=== PATIENT | male | born 1995 | race Hispanic/Latino ===

== ENCOUNTER 2021-04-11 15:11 | Inpatient (IN) | payer OTHER ==
[~2021-04-11] VITALS: Ht 177.8 cm; Wt 78.5 kg
[2021-04-11 15:16] VITALS: BP 115/54
[2021-04-11] MEDS ORDERED: LACTATED RINGERS 1000ML 1,000 ML IV SCH (15:30)
[2021-04-11 15:52] LABS: BASOPHILS % (AUTO) 0.8 % (0.0-5.0); EOSINOPHILS % (AUTO) 0.6 % (0.0-8.0); LYMPHOCYTES % (AUTO) 16.3 % (21.0-51.0); MEAN CORPUSCULAR HEMOGLOBIN 29.7 pg (27.0-33.0); MEAN CORPUSCULAR HGB CONC 33.9 g/dL (32.0-36.0); MEAN CORPUSCULAR VOLUME 87.6 fL (79-99); MONOCYTES % (AUTO) 12.2 % (3.0-13.0); NEUTROPHILS % (AUTO) 69.5 % (40.0-77.0); PLATELET COUNT (AUTO) 242 K/uL (130-400); RED BLOOD CELL COUNT(AUTO) 5.82 MIL/uL (4.50-6.20); RED CELL DISTRIBUTION WIDTH 12.6 % (11.0-15.5); WHITE BLOOD COUNT (AUTO) 12.6 K/uL (4.8-10.8)
[2021-04-11 16:06] LABS: CREATININE 0.7 mg/dL (0.5-1.5); POTASSIUM 3.2 mmol/L (3.5-5.1)
[2021-04-11 16:19] LABS: ALBUMIN 4.1 g/dL (3.5-5.0); BILIRUBIN,TOTAL 1.3 mg/dL (0.2-1.0); MAGNESIUM 2.1 mg/dL (1.80-2.40); TOTAL PROTEIN, SERUM 7.7 g/dL (6.0-8.3)
[2021-04-11] MEDS ORDERED: LACTATED RINGERS 1000ML 1,000 ML IV ONE (17:30)
[2021-04-11 19:06] LABS: APPEARANCE,URINE Clear (CLEAR); BILIRUBIN,URINE Negative (NEGATIVE); COLOR,URINE Dark Yellow (YELLOW); GLUCOSE, URINE (UA) Negative (NEGATIVE); KETONES,URINE 40 mg/dL (NEGATIVE); LEUKOCYTE ESTERASE ,URINE Small (NEGATIVE); NITRATE,URINE Negative (NEGATIVE); OCCULT BLOOD,URINE Negative (NEGATIVE); PH,URINE 6.5 (5.0-8.0); PROTEIN,URINE Trace mg/dL (NEGATIVE)
[2021-04-11 19:22] LABS: BACTERIA,URINE Few /HPF (None Seen); MUCUS,URINE Few LPF (None Seen); SQUAMOUS EPITHELIAL CELL,UR Few /HPF (0-2)
[2021-04-11 19:30] VITALS: BP 108/62
[2021-04-11] MEDS ORDERED: LACTATED RINGERS 1000ML IV SCH (19:30)
[2021-04-11] MEDS ORDERED: POTASSIUM CHLORIDE 10% ELIXIR 20 MEQ/15 ML UDCUP PO PRN (20:30)
[2021-04-11] MEDS ORDERED: KCL 20 MEQ ERTAB PO PRN (20:30)
[2021-04-11] MEDS ORDERED: POTASSIUM CHLORIDE 20MEQ/100ML 100 ML IV PRN (20:30)
[2021-04-11] MEDS ORDERED: LIDOCAINE HCL-MPF 1% 2ML VIAL IV PRN (20:30)
[2021-04-11] MEDS ORDERED: CEFTRIAXONE 1G VIAL IVP SCH (20:30)
[2021-04-11] MEDS: 0.9%NACL 1000ML 1,000 ML IV SCH (20:45)
[2021-04-11] MEDS: HEPARIN 5,000 UNIT VIAL SQ SCH (21:00)
[2021-04-11] MEDS: FAMOTIDINE 20MG VIAL IV SCH (21:00)
[2021-04-11 23:02] VITALS: BP 101/59
[2021-04-11] MEDS ORDERED: IOHEXOL-350 75 ML VIAL IV ONE (23:14)
[2021-04-12] VITALS (8 sets, daily range): BP systolic 117–131; BP diastolic 57–71
[2021-04-12] MEDS: 0.9%NACL 1000ML 1,000 ML IV SCH ×3 (03:40→16:57)
[2021-04-12 06:46] LABS: BASOPHILS % (AUTO) 0.4 % (0.0-5.0); EOSINOPHILS % (AUTO) 1.1 % (0.0-8.0); HEMATOCRIT 48.8 % (42-54); MEAN CORPUSCULAR HEMOGLOBIN 29.7 pg (27.0-33.0); MEAN CORPUSCULAR HGB CONC 33.2 g/dL (32.0-36.0); MEAN CORPUSCULAR VOLUME 89.4 fL (79-99); MONOCYTES % (AUTO) 10.4 % (3.0-13.0); NEUTROPHILS % (AUTO) 74.7 % (40.0-77.0); PLATELET COUNT (AUTO) 214 K/uL (130-400); RED BLOOD CELL COUNT(AUTO) 5.46 MIL/uL (4.50-6.20); RED CELL DISTRIBUTION WIDTH 12.7 % (11.0-15.5)
[2021-04-12 06:58] LABS: CREATININE 0.7 mg/dL (0.5-1.5); POTASSIUM 4.1 mmol/L (3.5-5.1)
[2021-04-12] MEDS: FAMOTIDINE 20MG VIAL IV SCH ×2 (11:56→19:46)
[2021-04-12] MEDS: HEPARIN 5,000 UNIT VIAL SQ SCH ×2 (12:09→19:46)
[2021-04-12 13:57] LABS: AMPHET/METH SCREEN,URINE NEGATIVE (NEGATIVE); BARBITURATE SCREEN, URINE NEGATIVE (NEGATIVE); BENZODIAZEPINES SCREEN,URINE NEGATIVE (NEGATIVE); CANNABINOID SCREEN,URINE POSITIVE (NEGATIVE); COCAINE SCREEN,URINE NEGATIVE (NEGATIVE); OPIATE SCREEN,URINE NEGATIVE (NEGATIVE); PHENCYCLIDINE SCREEN,URINE NEGATIVE (NEGATIVE)
[2021-04-12] MEDS ORDERED: HYDROXYZINE 25 MG TABLET PO PRN (15:30)
[2021-04-12] MEDS: METRONIDAZOLE 500 MG TABLET PO SCH ×2 (16:57→19:46)
[2021-04-12] MEDS: HYDROXYZINE 25 MG TABLET PO SCH ×2 (16:57→19:46)
[2021-04-12] MEDS: LEVOFLOXACIN 500 MG/D5W 100 ML 100 ML IV SCH (16:57)
[2021-04-13] MEDS: 0.9%NACL 1000ML 1,000 ML IV SCH ×3 (01:03→11:41)
[2021-04-13] MEDS: METRONIDAZOLE 500 MG TABLET PO SCH ×2 (04:17→12:35)
[2021-04-13 05:22] LABS: BASOPHILS % (AUTO) 0.5 % (0.0-5.0); EOSINOPHILS % (AUTO) 1.9 % (0.0-8.0); HEMATOCRIT 43.9 % (42-54); LYMPHOCYTES % (AUTO) 18.6 % (21.0-51.0); MEAN CORPUSCULAR HEMOGLOBIN 29.8 pg (27.0-33.0); MEAN CORPUSCULAR HGB CONC 33.7 g/dL (32.0-36.0); MEAN CORPUSCULAR VOLUME 88.3 fL (79-99); NEUTROPHILS % (AUTO) 67.5 % (40.0-77.0); PLATELET COUNT (AUTO) 212 K/uL (130-400); RED BLOOD CELL COUNT(AUTO) 4.97 MIL/uL (4.50-6.20); RED CELL DISTRIBUTION WIDTH 12.5 % (11.0-15.5); WHITE BLOOD COUNT (AUTO) 11.1 K/uL (4.8-10.8)
[2021-04-13 06:32] LABS: BILIRUBIN,TOTAL 0.7 mg/dL (0.2-1.0); CREATININE 0.8 mg/dL (0.5-1.5); POTASSIUM 3.5 mmol/L (3.5-5.1)
[2021-04-13] MEDS: HYDROXYZINE 25 MG TABLET PO SCH ×2 (07:38→12:36)
[2021-04-13] MEDS: FAMOTIDINE 20MG VIAL IV SCH (07:38)
[2021-04-13] MEDS: HEPARIN 5,000 UNIT VIAL SQ SCH (07:45)
[2021-04-13] MEDS: LEVOFLOXACIN 500 MG/D5W 100 ML 100 ML IV SCH (12:35)
[2021-04-13] MEDS ORDERED: HYDR-3421 PO (14:11)
[2021-04-13] MEDS ORDERED: METR-172 PO (14:11)
[2021-04-13] MEDS ORDERED: LEVO500T89 PO (14:11)
== END 2021-04-13 15:10 | disposition home or self-care (01) | DRG 558 ==
LOC: EDH 15:11 → OBSVTOIN 15:12 → EDHIP 15:12 → 4BH 04-12 09:01
PROVIDERS: ADMIT Internal Medicine; ATTEND Internal Medicine
DX: M62.82 Rhabdomyolysis (principal); R45.851 Suicidal ideations; R44.3 Hallucinations, unspecified; N39.0 Urinary tract infection, site not specified; E87.6 Hypokalemia; F06.4 Anxiety disorder due to known physiological condition; F41.1 Generalized anxiety disorder; E86.0 Dehydration; F12.13 Cannabis abuse with withdrawal; F12.120 Cannabis abuse with intoxication, uncomplicated; Z87.891 Personal history of nicotine dependence
CPT/HCPCS: 36415; 70450; 70498; 71045; 80048; 80053; 80305; 81001; 82550; 83735; 83874; 85025; 87088; 93005; G0378; J0696; J1644; J1956; J3490; J7030; J7120; Q9967